=== PATIENT | female | born 1945 | race Caucasian/White ===

== ENCOUNTER 2020-08-19 16:59 | Emergency (ER) | payer MEDICARE ==
--- NOTE | 2020-08-19 18:36 | EDM.PDOC ---
ED HPI GENERAL MEDICAL PROBLEM - General Chief Complaint: Flank Pain Stated Complaint: BLOOD IN URINE/SENT BY WALK-IN Time Seen by Provider: 08/19/20 17:23 Source of Information: Reports: Patient, RN Notes Reviewed History Limitations: Reports: No Limitations - History of Present Illness INITIAL COMMENTS - FREE TEXT/NARRATIVE: Patient is a 74-year-old female presenting to the emergency department for evaluation at the request of the [facility]. She presented to them today with concerns that she could have a urinary tract infection. They checked her urine and found that there was no infection, however she did have blood in her urine. Patient reports that she was having blood in her urine last week as well as dysuria. Yesterday she continued to have dysuria and was having a difficult time voiding. She states that she had the urge to void but could only go a small amount. Last evening she did finally void normally. Patient has a history of kidney stones. 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 She denies any pain, however states when she had the kidney stones in her left kidney she had no pain related to these either. The only reason she knew she even had the stone is because she had gross hematuria. She denies any fever or chills. Patient is in [place] visiting her daughter from [place]. She does not have any of her past medical records available to her on her phone or otherwise. She is not sure what her normal kidney function is. - Related Data Allergies Allergy/AdvReac Type Severity Reaction Status Date / Time No Known Allergies Allergy Verified 08/19/20 17:11 Past Medical History Cardiovascular History: Reports: Hypertension Respiratory History: Reports: Asthma Genitourinary History: Reports: Renal Calculus Musculoskeletal History: Reports: Arthritis Psychiatric History: Reports: Depression - Past Surgical History Female Surgical History: Reports: Kidney stone extraction, Other (See Below) Other Female Surgeries/Procedures: left kidney removal Social & Family History - Tobacco Use Tobacco Use Status *Q: Never Tobacco User - Recreational Drug Use Recreational Drug Use: No ED ROS GENERAL - Review of Systems Review Of Systems: See Below Constitutional: Reports: No Symptoms. Denies: Fever, Chills HEENT: Reports: No Symptoms Respiratory: Reports: No Symptoms Cardiovascular: Reports: No Symptoms Endocrine: Reports: No Symptoms GI/Abdominal: Reports: No Symptoms : Reports: Dysuria, Hematuria. Denies: Flank Pain Musculoskeletal: Reports: No Symptoms Skin: Reports: No Symptoms Neurological: Reports: No Symptoms Psychiatric: Reports: No Symptoms Hematologic/Lymphatic: Reports: No Symptoms Immunologic: Reports: No Symptoms ED EXAM, RENAL/ - Physical Exam Exam: See Below General Appearance: Alert, WD/WN, No Apparent Distress Respiratory/Chest: No Respiratory Distress, Lungs Clear, Normal Breath Sounds, No Accessory Muscle Use, Chest Non-Tender Cardiovascular: Normal Peripheral Pulses, Regular Rate, Rhythm, No Edema, No Gallop, No JVD, No Murmur, No Rub GI/Abdominal: Normal Bowel Sounds, Soft, Non-Tender, No Organomegaly, No Distention, No Abnormal Bruit, No Mass Back Exam: Normal Inspection, Full Range of Motion. No: CVA Tenderness (L), CVA Tenderness (R) Neurological: Alert, Oriented, CN II-XII Intact, Normal Cognition, Normal Gait, Normal Reflexes, No Motor/Sensory Deficits Psychiatric: Normal Affect, Normal Mood Skin Exam: Warm, Dry, Intact, Normal Color, No Rash Course - Vital Signs Last Recorded V/S: Last Vital Signs Temp 98.7 F 08/19/20 18:44 Pulse 93 08/19/20 19:15 Resp 18 08/19/20 19:15 BP 166/82 H 08/19/20 19:15 Pulse Ox 94 L 08/19/20 19:15 - Orders/Labs/Meds Labs: Laboratory Tests 08/19/20 08/19/20 08/19/20 Range/Units 17:31 17:31 18:00 WBC 8.98 (3.98-10.04) K/mm3 RBC 4.46 (3.98-5.22) M/mm3 Hgb 13.4 (11.2-15.7) gm/dl Hct 42.0 (34.1-44.9) % MCV 94.2 (79.4-94.8) fl MCH 30.0 (25.6-32.2) pg MCHC 31.9 L (32.2-35.5) g/dl RDW Std Deviation 43.2 (36.4-46.3) fL Plt Count 272 (182-369) K/mm3 MPV 9.1 L (9.4-12.3) fl Neut % (Auto) 67.8 (34.0-71.1) % Lymph % (Auto) 18.0 L (19.3-51.7) % Carbon % (Auto) 10.7 (4.7-12.5) % Eos % (Auto) 3.1 (0.7-5.8) Baso % (Auto) 0.2 (0.1-1.2) % Neut # (Auto) 6.08 (1.56-6.13) K/mm3 Lymph # (Auto) 1.62 (1.18-3.74) K/mm3 Carbon # (Auto) 0.96 H (0.24-0.36) K/mm3 Eos # (Auto) 0.28 (0.04-0.36) K/mm3 Baso # (Auto) 0.02 (0.01-0.08) K/mm3 Sodium 144 (136-145) mEq/L Potassium 3.2 L (3.5-5.1) mEq/L Chloride 108 H (98-107) mEq/L Carbon Dioxide 20 L (21-32) mEq/L Anion Gap 19.2 H (5-15) BUN 32 H (7-18) mg/dL Creatinine 2.3 H (0.55-1.02) mg/dL Est Cr Clr Drug Dosing 16.44 mL/min Estimated GFR (MDRD) 21 (>60) mL/min BUN/Creatinine Ratio 13.9 L (14-18) Glucose 112 (83-115) mg/dL Calcium 8.3 L (8.5-10.1) mg/dL Total Bilirubin 0.3 (0.2-1.0) mg/dL AST 17 (15-37) U/L ALT 26 (14-59) U/L Alkaline Phosphatase 40 L (46-116) U/L Total Protein 6.7 (6.4-8.2) g/dl Albumin 3.3 L (3.4-5.0) g/dl Globulin 3.4 gm/dL Albumin/Globulin Ratio 1.0 (1-2) Urine Color Yellow (Yellow) Urine Appearance Clear (Clear) Urine pH 6.0 (5.0-8.0) Ur Specific [place] 1.020 (1.005-1.030) Urine Protein Negative (Negative) Urine Glucose (UA) Negative (Negative) Urine Ketones Negative (Negative) Urine Occult Blood 3+ H (Negative) Urine Nitrite Negative (Negative) Urine Bilirubin Negative (Negative) Urine Urobilinogen 0.2 (0.2-1.0) Ur Leukocyte Esterase Trace H (Negative) Urine RBC 10-20 H (0-5) /hpf Urine WBC 0-5 (0-5) /hpf Ur Squamous Epith Cells 0-5 (0-5) /hpf Urine Bacteria Few (FEW) /hpf Urine Mucus Not seen (FEW) /hpf - Re-Assessments/Exams Free Text/Narrative Re-Assessment/Exam: As above, patient has a history of left nephrectomy due to trauma call by kidney stone removal. She had blood in her urine last week as well as dysuria and difficulty voiding yesterday. Urinalysis at the clinic showed hematuria but no signs of infection. She denies any pain, however states she did not have pain with her previous kidney stones either. I have ordered blood work, urinalysis, and a CT scan of the abdomen pelvis without contrast. 08/19/20 19:04 Hematology was significant for a potassium low at 3.2, chloride 108, CO2 20, anion gap 19.2, BUN 32, creatinine 2.3 with a GFR of 21. Impression of CT scan as follows: 1. No left kidney is compatible with left nephrectomy. Nonobstructing calculi within the right kidney. Nonobstructing stone is noted within the right renal pelvis. 2. Inflammatory change around the right kidney. Right ureter is slightly dilated. There is a 3 mm calculus which is nonobstructing within the distal right ureter. 9 mm calculus is noted which projects within the bladder and is felt to be within the UVJ of the distal right ureter. 3. Other findings believed to be incidental. Given patient's history of previous nephrectomy and only having 1 kidney, results of the CT scan a decreased kidney function are concerning. I did consult discuss her case with the urologist on-call at [facility] in [place], Dr. Garcia. He would like the patient transferred to [place] for stenting. Patient's daughter will take her. Advised she should remain n.p.o. and head directly to [place]. She should check in at the ER. Patient and daughter verbalized understanding of this. Departure - Departure Time of Disposition: 19:04 Disposition: DC/Tfer to Acute Hospital 02 Condition: Good Clinical Impression: Hydronephrosis with renal and ureteral calculous obstruction Acute renal failure Qualifiers: Acute renal failure type: unspecified Qualified Code(s): N17.9 - Acute kidney failure, unspecified - Discharge Information Referrals: PCP,Not In Area [Primary Care Provider] - Forms: ED Department Discharge Additional Instructions: You were seen in the emergency department today for evaluation of blood in your urine always difficulty voiding yesterday. Work-up included blood work, urinalysis, and a CT scan of your abdomen pelvis. Results of your work-up unfortunately show that you have a 9 mm stone obstructing your right ureter. Your kidney function is also impaired which is concerning given that you only have 1 kidney. Arrangements have been made for you to see urologist at [facility] in [place] this evening to have the ureter stented. You should travel directly to [facility] in [place] and present to the ER. The urologist will evaluate you what they are once you arrive. He should have nothing to eat or drink after departure in anticipation of surgery. He did state that this will be an overnight stay. Sepsis Event Note (ED) - Evaluation Sepsis Screening Result: No Definite Risk - Focused Exam Vital Signs: Vital Signs Temp Pulse Resp BP Pulse Ox 08/19/20 19:15 93 18 166/82 H 94 L 08/19/20 18:44 98.7 F 74 16 141/72 H 96 08/19/20 17:06 98.4 F 87 20 161/87 H 97
--- NOTE | 2020-08-19 18:36 | CT ---
CT abdomen and pelvis Technique: Multiple axial sections were obtained from above the dome of the diaphragm inferiorly to the pubic symphysis. Intravenous and oral contrast was not given. Reconstructed coronal and sagittal images were obtained. Findings: Mild inflammatory change is seen around the right kidney. Nonobstructing calculi are seen within the right kidney as well as right renal pelvis. Right ureter is slightly prominent in size. There is a small calculus seen within the distal right ureter which appears nonobstructing. This calcification measures 3 mm. Larger calcification is seen which projects into the bladder which is felt to be at the left UVJ measuring 9 mm. No left kidney is seen. Visualized lung bases show nothing acute. Noncontrast appearance of the liver shows no focal abnormality. Spleen size is normal. Right adrenal gland is normal. Nodule is noted within the left adrenal gland measuring 3.3 cm which has negative Hounsfield unit measurements and is compatible with adrenal lipoma. Pancreas is within normal limits. Surgical clips are seen from prior cholecystectomy. Abdominal aorta shows atherosclerotic calcification which continues into the iliac vessels. No aneurysm is seen. No retroperitoneal adenopathy or mesenteric abnormalities are seen. Appendix is seen which is normal. No pelvic mass or adenopathy is appreciated. Bone window settings were reviewed which show scattered degenerative change within the spine. No acute osseous abnormality is seen. Impression: 1. No left kidney is seen compatible with left nephrectomy. Nonobstructing calculi within the right kidney. Nonobstructing stone is noted within the right renal pelvis. 2. Inflammatory change around the right kidney. Right ureter is slightly dilated. There is a 3 mm calculus which is nonobstructing within the distal right ureter. 9 mm calculus is noted which projects within the bladder and is felt to be within the UVJ of the distal right ureter. 3. Other findings believed to be incidental as noted above. Diagnostic code #3
== END 2020-08-19 19:35 ==
LOC: JD.ED 16:59
DX: N17.9 Acute kidney failure, unspecified (principal); N13.2 Hydronephrosis with renal and ureteral calculous obstruction; J45.909 Unspecified asthma, uncomplicated; I10 Essential (primary) hypertension
CPT/HCPCS: 36415; 74176; 74176-26; 80053; 81001; 85025; 99284-25; 99285